=== PATIENT | female | born 1970 | race Caucasian/White ===

== ENCOUNTER → 2018-05-07 | Outpatient (CLI) | payer OTHER ==
[~2018-05-07] MED LIST: AZIT250T PO; FLUT1BLS INH; No meds per pt.; PRED20TA PO; UMEC1DIS INH
== END | disposition home or self-care (01) ==
LOC: CFH 14:27
PROVIDERS: ATTEND Obstetrics & Gynecology Maternal & Fetal Medicine
DX: N60.01 Solitary cyst of right breast (principal)
CPT/HCPCS: 76641; 77066; G0279

== ENCOUNTER → 2018-06-06 | Outpatient (CLI) | payer OTHER | END | disposition home or self-care (01) | LOC: CFH 11:59 | PROVIDERS: ATTEND Obstetrics & Gynecology Maternal & Fetal Medicine | DX: N60.01 Solitary cyst of right breast (principal) | CPT/HCPCS: 19000; 76942 ==

== ENCOUNTER 2018-06-16 06:19 | Emergency (ER) | payer OTHER ==
[~2018-06-16] VITALS: Ht 170.2 cm; Wt 52.0 kg
[2018-06-16] MEDS ORDERED: ONDANSETRON 2MG/ML, 2ML ONE (06:46)
--- NOTE | 2018-06-16 06:47 | NUR ---
first contact with pt. 47 Y/O FEMALE PRESENTS TO ED WITH C/O N/V "I THINK I HAVE FOOD POISIONING. IT STARTED AT 4 PM YESTERDAY. I HAD SOME MAC[place]ONI SALAD AT [facility] AND IMMEDIATELY I WAS GETTING SICK. IT'S BEEN NON STOP SINCE RIGHT AFTER I ATE IT." PT PLACED ON CONT PULSE OX, NIBP. NO C/O TRAUMA, SYNCOPE, CP, SOB.
--- NOTE | 2018-06-16 06:59 | NUR ---
PT GIVEN WARM BLANKETS AND BEAR WARMER. SIGNIFICANT OTHER BEDSIDE.
[2018-06-16] MEDS ORDERED: SODIUM CHLORIDE 0.9% 1,000ML IVBOLUS ONE (07:00)
[2018-06-16] MEDS ORDERED: LORazepam 2 MG/ML, 1ML IVPush ONE (07:00)
[2018-06-16] MEDS ORDERED: SODIUM CHLORIDE FLUSH 10ML SYR IVF ONE (07:00)
[2018-06-16] MEDS ORDERED: MORPHINE SULFATE 4 MG/ML, 1ML IVPush PRN (07:00)
[2018-06-16] MEDS ORDERED: ONDANSETRON 2MG/ML, 2ML IVPush ONE (07:00)
[2018-06-16 07:07] LABS: BASOPHILS # (AUTO) 0.01 x10^3/uL (0-0.1); BASOPHILS % (AUTO) 0 % (0-1); EOSINOPHILS % (AUTO) 0 % (1-7); LYMPHOCYTES % (AUTO) 6 % (22-44); MD NO; MEAN CORPUSCULAR HEMOGLOBIN 31.9 pg (27.0-34.8); MEAN CORPUSCULAR HGB CONC 33.1 g/dL (32.4-35.8); MEAN CORPUSCULAR VOLUME 96.3 fL (80-100); MEAN PLATELET VOLUME 7.8 fL (7.4-10.4); MONOCYTES # (AUTO) 0.37 x10^3/uL (0.2-0.8); MONOCYTES % (AUTO) 2 % (2-9); NEUTROPHILS # (AUTO) 14.15 x10^3/uL (1.8-6.8); NEUTROPHILS % (AUTO) 92 % (42-75); PLATELET COUNT 255 x10^3/uL (130-400); RED BLOOD COUNT 4.55 x10^6/uL (3.82-5.3); RED CELL DISTRIBUTION WIDTH 13.8 % (9.6-15.2)
[2018-06-16 07:20] LABS: ALANINE AMINOTRANSFERASE 60 U/L (12-78); ALBUMIN 4.5 g/dL (3.4-5.0); ANION GAP 12 mmol/L (5-15); CALCIUM 9.1 mg/dL (8.5-10.1); CHLORIDE 107 mmol/L (98-107)
[2018-06-16 07:22] LABS: ALKALINE PHOSPHATASE 52 U/L (45-117); TOTAL PROTEIN 7.6 g/dL (6.4-8.2)
[2018-06-16] MEDS ORDERED: LORazepam 2 MG/ML, 1ML ONE (07:27)
[2018-06-16] MEDS ORDERED: MORPHINE SULFATE 4 MG/ML, 1ML ONE (07:27)
[2018-06-16 08:11] VITALS: BP 108/63
--- NOTE | 2018-06-16 08:11 | NUR ---
PT STATES "THANK YOU FOR BRINGING ME BACK TO LIFE. I THINK THE FLUIDS MADE A HUGE DIFFERENCE. I STILL HAVE A KNOT IN MY STOMACH. I KNOW IT'S FROM THROWING UP." NO ACUTE DISTRESS NOTED. SIGNIFICANT OTHER BEDSIDE. NO NEEDS REQUESTED AT THIS TIME.
--- NOTE | 2018-06-16 08:14 | NUR ---
PT AMBULATORY WITH STEADY GAIT TO BATHROOM.
[2018-06-16 08:36] LABS: MICROSCOPIC INDICATED
[2018-06-16 08:50] LABS: CULTURE INDICATED? YES
== END 2018-06-16 08:47 | disposition home or self-care (01) ==
LOC: ED 08:44
DX: R11.2 Nausea with vomiting, unspecified (principal); E86.0 Dehydration
CPT/HCPCS: 36415; 80053; 81001; 81025; 83605; 85025; 87086; 96361; 96374; 96375; 99283; J2405; J7030